=== PATIENT | female | born 1960 | race Caucasian/White ===

== ENCOUNTER 2022-02-18 09:51 | Inpatient (IN) | payer MEDICARE, MEDICAID ==
[2022-02-18] MEDS ORDERED: Sodium Chloride 0.9% 1,000 ML IV ONE (15:30)
[2022-02-18] MEDS ORDERED: Sodium Chloride 0.9% 10 ML Syringe FLUSH PRN (15:31)
[2022-02-18] MEDS ORDERED: Ondansetron 4 MG/2 ML SDV IVPUSH ONE (18:47)
[2022-02-18] MEDS ORDERED: cefTRIAXone 1 GM in Sodium Chloride 0.9% 100 ML IV SCH (19:00)
[2022-02-18] MEDS: Sodium Chloride 0.9% 1,000 ML IV SCH (19:33)
[2022-02-18 20:22] LABS: CORONAVIRUS COVID-19 NAA NEGATIVE (NEGATIVE)
[2022-02-19] MEDS: Sodium Chloride 0.9% 1,000 ML IV SCH (01:27)
[2022-02-19] MEDS ORDERED: Acetaminophen 325 MG Tab PO PRN (07:10)
[2022-02-19] MEDS ORDERED: Docusate Sodium 100 MG Cap PO PRN (07:10)
[2022-02-19] MEDS: Ondansetron 4 MG/2 ML SDV IV PRN ×2 (08:42→17:34)
[2022-02-19] MEDS: Enoxaparin 40 MG/0.4 ML Syringe SUBCUT SCH (09:16)
[2022-02-19] MEDS: Nicotine 21 MG/24 Hr Patch TRDERM SCH (09:16)
[2022-02-19] MEDS: Pantoprazole 40 MG Tab.CR PO SCH (12:18)
[2022-02-19] MEDS: Lactated Ringers 1,000 ML IV SCH (12:19)
[2022-02-19] MEDS: Scopolamine 1.5 MG Transdermal Patch TRDERM SCH (12:19)
[2022-02-20] MEDS: Ondansetron 4 MG/2 ML SDV IV PRN ×2 (01:22→08:42)
[2022-02-20] MEDS: Lactated Ringers 1,000 ML IV SCH (01:22)
[2022-02-20] MEDS: Potassium Chloride 10 MEQ in Premix Bag 1 BAG IV SCH ×4 (08:38→15:52)
[2022-02-20] MEDS: Nicotine 21 MG/24 Hr Patch TRDERM SCH (08:48)
[2022-02-20] MEDS: Pantoprazole 40 MG Tab.CR PO SCH ×2 (08:48→20:38)
[2022-02-20] MEDS: Enoxaparin 40 MG/0.4 ML Syringe SUBCUT SCH (08:48)
[2022-02-20] MEDS ORDERED: Iopamidol 755 Mg/ML 100 ML Bottle IVPUSH ONE (08:51)
[2022-02-20] MEDS ORDERED: Sodium Chloride 0.9% 10 ML Syringe FLUSH ONE (08:51)
[2022-02-20] MEDS ORDERED: Promethazine 12.5 MG in Sodium Chloride 0.9% 50 ML IV ONE (10:30)
[2022-02-20] MEDS: Dextrose 5%-Lact Ringers w/KCl 1,000 ML IV SCH (11:37)
[2022-02-20] MEDS: Metoclopramide 10 MG/2 ML SDV IVPUSH SCH ×2 (15:51→20:38)
[2022-02-20] MEDS ORDERED: Thiamine 100 MG in Sodium Chloride 0.9% 100 ML IV ONE (18:12)
[2022-02-20] MEDS: Folic Acid 50 MG/10 ML MDV IV SCH (20:34)
[2022-02-20] MEDS: Vitamin B Complex With Vitamin C Cap PO SCH ×2 (20:38→21:04)
[2022-02-21] MEDS: Dextrose 5%-Lact Ringers w/KCl 1,000 ML IV SCH ×2 (00:51→14:28)
[2022-02-21] MEDS: Metoclopramide 10 MG/2 ML SDV IVPUSH SCH ×4 (04:20→20:20)
[2022-02-21] MEDS: Ondansetron 4 MG/2 ML SDV IV PRN (08:22)
[2022-02-21] MEDS: Pantoprazole 40 MG Tab.CR PO SCH ×2 (08:56→20:20)
[2022-02-21] MEDS: Vitamin B Complex With Vitamin C Cap PO SCH ×2 (08:56→20:20)
[2022-02-21] MEDS: Nicotine 21 MG/24 Hr Patch TRDERM SCH (08:57)
[2022-02-21] MEDS: Enoxaparin 40 MG/0.4 ML Syringe SUBCUT SCH (08:57)
[2022-02-21] MEDS: Folic Acid 50 MG/10 ML MDV IV SCH (09:51)
[2022-02-21] MEDS: Cyanocobalamin (Vitamin B12) 1,000 MCG/ML SDV IM SCH (17:47)
[2022-02-21] MEDS: Multivitamin Tab PO SCH (20:20)
[2022-02-22] MEDS: Metoclopramide 10 MG/2 ML SDV IVPUSH SCH ×4 (04:02→21:21)
[2022-02-22] MEDS: Dextrose 5%-Lact Ringers w/KCl 1,000 ML IV SCH (04:11)
[2022-02-22] MEDS ORDERED: Magnesium Sulfate/Water 2 GM in Premix Bag 1 BAG IV ONE (08:28)
[2022-02-22] MEDS: Folic Acid 50 MG/10 ML MDV IV SCH (09:00)
[2022-02-22] MEDS ORDERED: Potassium Chloride 10 MEQ in Premix Bag 1 BAG IV SCH (10:45)
[2022-02-22] MEDS: Pantoprazole 40 MG Tab.CR PO SCH ×2 (11:07→21:21)
[2022-02-22] MEDS: Vitamin B Complex With Vitamin C Cap PO SCH ×2 (11:07→21:22)
[2022-02-22] MEDS: Cholecalciferol (Vitamin D3) 5,000 UNIT Cap PO SCH (11:07)
[2022-02-22] MEDS: Cyanocobalamin (Vitamin B12) 1,000 MCG/ML SDV IM SCH (11:07)
[2022-02-22] MEDS: Enoxaparin 40 MG/0.4 ML Syringe SUBCUT SCH (11:09)
[2022-02-22] MEDS: Potassium Chloride 10 MEQ in Premix Bag 1 BAG IV SCH ×4 (13:13→21:19)
[2022-02-22] MEDS: Scopolamine 1.5 MG Transdermal Patch TRDERM SCH (14:16)
[2022-02-22] MEDS ORDERED: Sodium Chloride 0.9% 1,000 ML IV SCH (18:45)
[2022-02-22] MEDS ORDERED: Sodium Chloride 0.9% 1,000 ML ONE (18:52)
[2022-02-22] MEDS: Multivitamin Tab PO SCH (21:22)
[2022-02-23] MEDS: Potassium Chloride 10 MEQ in Premix Bag 1 BAG IV SCH ×2 (01:41→01:42)
[2022-02-23] MEDS: Metoclopramide 10 MG/2 ML SDV IVPUSH SCH ×2 (03:30→08:15)
[2022-02-23] MEDS: Vitamin B Complex With Vitamin C Cap PO SCH (08:15)
[2022-02-23] MEDS: Pantoprazole 40 MG Tab.CR PO SCH (08:15)
[2022-02-23] MEDS: Cyanocobalamin (Vitamin B12) 1,000 MCG/ML SDV IM SCH (08:15)
[2022-02-23] MEDS: Cholecalciferol (Vitamin D3) 5,000 UNIT Cap PO SCH (08:15)
[2022-02-23] MEDS: Enoxaparin 40 MG/0.4 ML Syringe SUBCUT SCH (08:16)
== END 2022-02-23 11:45 | disposition home or self-care (01) | DRG 641 ==
LOC: JD.ED 09:51 → JD.MS 18:48 → OBSVTOIN 02-20 13:33 → JD.OB 02-20 18:27 → JD.MS 02-22 10:25
PROVIDERS: ADMIT Hospitalist; ATTEND Hospitalist
DX: E86.0 Dehydration (principal); K56.1 Intussusception; Z66 Do not resuscitate; R53.1 Weakness; J44.9 Chronic obstructive pulmonary disease, unspecified; R20.2 Paresthesia of skin; F17.210 Nicotine dependence, cigarettes, uncomplicated; Z79.899 Other long term (current) drug therapy; R63.0 Anorexia; Z20.822 Contact with and (suspected) exposure to COVID-19; J43.9 Emphysema, unspecified; F32.89 Other specified depressive episodes; G43.909 Migraine, unspecified, not intractable, without status migrainosus; F32.A Depression, unspecified; E03.9 Hypothyroidism, unspecified; E87.6 Hypokalemia; R62.7 Adult failure to thrive; Z68.20 Body mass index [BMI] 20.0-20.9, adult; Z95.5 Presence of coronary angioplasty implant and graft; Z90.89 Acquired absence of other organs; Z98.890 Other specified postprocedural states; Z87.440 Personal history of urinary (tract) infections; Z90.49 Acquired absence of other specified parts of digestive tract; Z85.028 Personal history of other malignant neoplasm of stomach; Z97.3 Presence of spectacles and contact lenses; Z97.4 Presence of external hearing-aid; H54.7 Unspecified visual loss
CPT/HCPCS: 0240U; 36415; 71260; 74018; 74176; 74177; 80048; 80053; 81001; 82607; 82728; 82747; 82947; 83540; 83605; 83690; 83735; 84100; 84425; 84443; 84466; 85014; 85025; 96360; 96361; 97110; 97116; 97162; 99285; 96365; 96375; A9270-GY; J0696; J1650; J2405; J2550; J2765; J3411; J3420; J3475; J3480; J3490; J7030; J7120; Q9967

== ENCOUNTER 2022-05-10 19:47 | Emergency (ER) | payer MEDICARE, MEDICAID | END 2022-05-10 22:39 | disposition home or self-care (01) | LOC: JD.ED 19:47 | DX: Z46.59 Encounter for fitting and adjustment of other gastrointestinal appliance and device (principal); J44.9 Chronic obstructive pulmonary disease, unspecified; Z90.49 Acquired absence of other specified parts of digestive tract; Z79.899 Other long term (current) drug therapy | CPT/HCPCS: 71045; 71045-26; 99283 ==